=== PATIENT | female | born 1960 | race Asian ===

== ENCOUNTER 2022-06-09 19:35 | Emergency (ER) | payer MEDICAID ==
[~2022-06-09] VITALS: Ht 149.9 cm; Wt 71.7 kg
[2022-06-09 19:57] VITALS: BP_SYST 173
--- NOTE | 2022-06-09 20:10 | NUR ---
Note undone in EDM - 06/09/22 at 2116 by [email or web address] # 22 gauge angiocath placed to L HAND. Use of asceptic technique. Opsite placed over site. Blood return noted. Blood for lab drawn from site. Flushed with 10 cc of normal saline. No evidence of infiltration noted. Patient tolerated well.
[2022-06-09 20:20] LABS: BASOPHILS # (AUTO) 0.1 K/uL (0.0-0.2); BASOPHILS % (AUTO) 0.7 % (0.0-2.0); EOSINOPHILS # (AUTO) 0.1 K/uL (0.0-0.4); EOSINOPHILS % (AUTO) 0.9 % (0.0-4.0); HEMATOCRIT 44.1 % (36-48); HEMOGLOBIN 15.2 g/dL (12.0-16.0); LYMPHOCYTES # (AUTO) 2.7 K/uL (1.0-5.5); LYMPHOCYTES % (AUTO) 30.9 % (20.5-51.5); MEAN CORPUSCULAR HEMOGLOBIN 31 pg (27-31); MEAN CORPUSCULAR HGB CONC 34 % (32-36); MEAN CORPUSCULAR VOLUME 90 fL (79.0-98.0); MONOCYTES # (AUTO) 0.4 K/uL (0.0-1.0); MONOCYTES % (AUTO) 5.1 % (1.7-9.3); NEUTROPHILS # (AUTO) 5.5 K/uL (1.8-7.7); NEUTROPHILS % (AUTO) 62.4 % (40.0-70.0); PLATELET COUNT (AUTO) 321 K/uL (130-430); RED BLOOD CELL COUNT(AUTO) 4.88 MIL/uL (4.2-6.2); RED CELL DISTRIBUTION WIDTH 13.2 % (9.0-15.0); WHITE BLOOD COUNT (AUTO) 8.8 K/uL (4.8-10.8)
--- NOTE | 2022-06-09 20:43 | NUR ---
Placed in room 5 . Placed on elastic tape inserter, blood pressure machine and pulse oximeter. To gown for exam. Side rails up. Report given to RASHIDA DAVENPORT(REG).
--- NOTE | 2022-06-09 20:53 | NUR ---
ER at bedside examining patient.
[2022-06-09] MEDS ORDERED: ACETAMINOPHEN 325 MG TABLET ONE (20:57)
[2022-06-09] MEDS ORDERED: LABETALOL HCL 20 MG/4 ML CARTRIDGE IVP ONE (21:00)
[2022-06-09] MEDS ORDERED: ACETAMINOPHEN 325 MG TABLET PO ONE (21:00)
--- NOTE | 2022-06-09 21:10 | NUR ---
# 22 gauge angiocath placed to L HAND. Use of asceptic technique. Opsite placed over site. Blood return noted. Blood for lab drawn from site. Flushed with 10 cc of normal saline. No evidence of infiltration noted. Patient tolerated well.
[2022-06-09 21:15] LABS: ANION GAP 9 (5-15); CALCIUM 9.2 mg/dL (8.4-11.0); CHLORIDE 104 mmol/L (98-107); CREATININE 0.51 mg/dL (0.55-1.30); GLUCOSE 104 mg/dL (70-99); UREA NITROGEN, BLOOD 13 mg/dL (8-21)
--- NOTE | 2022-06-09 21:16 | NUR ---
PT BIBS FROM HOME WITH C/O CHEST PAIN THAT OCCURED AT 6PM TODAY AND LASTED 10 MIN. CURRENTLY HAS A HEADACHE WITH SHOULDER PAIN. PT DENIES CHEST PAIN, DIZZINESS, SOB AND N/V CURRENTLY. PATIENT HAS A HISTORY OF HTN, PATIENT IS NOT COMPLIANT WITH HER HTN MEDICATIONS.
[2022-06-09 21:24] LABS: ALANINE AMINOTRANSFERASE 51 U/L (12-78); ALBUMIN 4.4 g/dL (3.4-4.8); ASPARTATE AMINOTRANSFERASE 29 U/L (10-37); TOTAL BILIRUBIN 0.5 mg/dL (0.0-1.0)
[2022-06-09 21:26] LABS: GFR AFRICAN AMERICAN 158 mL/min (>90)
[2022-06-09] MEDS ORDERED: HYDR25TA4 PO ×2 (22:07→22:08)
--- NOTE | 2022-06-09 22:24 | NUR ---
Note perry in EDM - 06/09/22 at 2225 by [email or web address] Patient given written and verbal discharge instructions and verbalizes understanding. ER discussed with patient the results and treatment provided. Patient in stable condition. ID arm band removed. IV catheter removed intact and dressing applied, no active bleeding. Rx of hctz given. Patient educated on pain management and to follow up with PMD. Pain Scale 2/10. Opportunity for questions provided and answered. Medication side effect fact sheet provided.
--- NOTE | 2022-06-09 22:26 | NUR ---
Patient given written and verbal discharge instructions and verbalizes understanding. ER MD discussed with patient the results and treatment provided. Patient in stable condition. ID arm band removed. IV catheter removed intact and dressing applied, no active bleeding. Rx of hctz given. Patient educated on pain management and to follow up with PMD. Pain Scale 2/10. Opportunity for questions provided and answered. Medication side effect fact sheet provided.
[2022-06-09 22:27] VITALS: BP_SYST 131
== END 2022-06-09 22:27 | disposition home or self-care (01) ==
LOC: SED 19:35
DX: R51.9 Headache, unspecified (principal); I10 Essential (primary) hypertension; R07.89 Other chest pain; Z79.899 Other long term (current) drug therapy
CPT/HCPCS: 36415; 71045; 80053; 84484; 85025; 93005; 96374; 99285